=== PATIENT | male | born 1960 | race Asian ===

== ENCOUNTER 2020-12-05 14:28 | Inpatient (IN) | payer BC ==
[~2020-12-05] VITALS: Ht 175.3 cm; Wt 77.3 kg
[~2020-12-05 14:28] MED LIST: FERRO-TIME325 MG PO; MOTRIN 200200 MG/TAB PO; NIFEREX-150 501 CA1 PO; PRILOSEC 20MG20 MG PO; PROBENECID500 MG PO; PROTONIX 40MG T40 MG PO; ZYRTEC 10MG10 MG PO
[2020-12-05 17:01] LABS: BASO % 0.4 % (0.0-2.0); EOS % 0.9 % (0-4.0); GRAN # 2.9 (1.4-6.5); GRAN % 63.9 % (42.2-75.2); LYMPH # 1.2 (1.2-3.4); MEAN CELL VOLUME 94 fl (80.0-100.0); MEAN CORPUSCULAR HGB CONC 32 g/dl (33.0-37.0); MEAN PLATELET VOLUME 11.4 fl (7.4-10.4); MONO # 0.3 (0.1-0.6); MONO % 7.6 % (1.7-9.3); PLATELET COUNT 299 K/mm3 (130-400); RED BLOOD COUNT 2.45 M/mm3 (4.20-5.60); REDCELL DISTRIBUTION WIDTH-CV 13.5 % (11.5-14.5)
[2020-12-05 17:03] LABS: HEMATOCRIT 22.9 % (42.0-52.0); HEMOGLOBIN 7.4 g/dl (13.5-18.0); MEAN CORPUSCULAR HEMOGLOBIN 30 pg (27.0-31.0)
[2020-12-05 17:10] LABS: BILIRUBIN,TOTAL 0.4 mg/dL (0.0-1.0); CREATININE, serum 1.13 (0.66-1.25); POTASSIUM 3.6 mmol/L (3.4-5.0); TOTAL PROTEIN 6.9 gm/dL (6.4-8.2)
[2020-12-05 17:14] LABS: INR 1.1 (0.8-3.0); PROTHROMBIN TIME 11.9 SECONDS (9.7-12.8)
[2020-12-05] MEDS ORDERED: BENEMID500 MG PO (18:59)
[2020-12-05] MEDS ORDERED: ALLEGRA 180MG180 MG PO (18:59)
[2020-12-05 19:28] VITALS: BP 118/74; PULSE 69; TEMP 98.7
[2020-12-05 19:30] VITALS: BP 118/74; PULSE 62; TEMP 98.7
--- NOTE | 2020-12-05 22:34 | NUR ---
Patient transferred to medical floor room 307 via wheelchair from ER at 1930 pm. Patient pleasant, A/O x4. Patient denies any pain or discomfort. Denies SOB, headache, dizziness, N/V, or diarrhea. Abdomen soft and non-distended. Patient ambulates to the bathroom with steady gait. Oriented patient to the room. NS running at 150 ml/hr via left AC. All scheduled meds given per OCT. VS stable. Informed patient regarding NPO from midnight for Endoscopy procedure tomorrow. Patient verbalized understanding. Call light within reach. Patient denies any needs at this time.
[2020-12-06] VITALS (9 sets, daily range): BP systolic 12–112; BP diastolic 61–86; PULSE 54–66; TEMP 97–98.4
--- NOTE | 2020-12-06 06:28 | NUR ---
Patient slept well throughout the night. No c/o abdominal pain or dark stools noted. VS stable. No acute distress noted. Consent for EGD signed. Call light within reach.
--- NOTE | 2020-12-06 06:45 | NUR ---
PT IS BEING TAKEN TO HIS EGD AT THIS TIME.
[2020-12-06 07:16] LABS: MEAN CELL VOLUME 92 fl (80.0-100.0); MEAN CORPUSCULAR HGB CONC 32 g/dl (33.0-37.0); MEAN PLATELET VOLUME 11.7 fl (7.4-10.4); PLATELET COUNT 271 K/mm3 (130-400); RED BLOOD COUNT 2.37 M/mm3 (4.20-5.60); REDCELL DISTRIBUTION WIDTH-CV 13.5 % (11.5-14.5)
[2020-12-06 07:19] LABS: HEMATOCRIT 21.9 % (42.0-52.0); HEMOGLOBIN 7.1 g/dl (13.5-18.0); MEAN CORPUSCULAR HEMOGLOBIN 30 pg (27.0-31.0)
[2020-12-06 07:27] LABS: CALCIUM 8.5 mg/dL (8.4-10.2); CREATININE, serum 1.07 (0.66-1.25); POTASSIUM 3.8 mmol/L (3.4-5.0)
--- NOTE | 2020-12-06 09:23 | NUR ---
HENRIQUE met with the patient and his , Juan (ph#[phone]), to discuss discharge plan. The patient lives in [place] with his . He reports independence with ADLs and has crutches. The patient's PCP is Dr. Carmelina Solis and he receives his medications from [facility] [place]. He reports no difficulties obtaining his meds. The patient does not have a DPOA-HC, but he was interested obtaining a form. HENRIQUE provided. The patient plans to return home with his upon discharge. No additional needs at this time.
--- NOTE | 2020-12-06 09:46 | NUR ---
PT HAS RETURNED FROM THE EGD. STABLE AT THIS TIME. PT HAS BEEN TOLD HE CAN EAT, AND DRINK AT THIS TIME. PT WILL RECEIVE 1 UNIT OF PRBCs TODAY. WILL RECHECK HGB TOMORROW MORNING, AND THEN POSSIBLE D/C WHEN HGB STABLIZED. NO OTHER CONCERNS, CALL LIGHT WITHIN REACH, PT STILL REMAINS ON POST PROCEDURE VITALS, BUT IS STABLE. WILL CONTINUE TO MONITOR.
--- NOTE | 2020-12-06 14:03 | NUR ---
PT BLOOD TRANSFUSION IS COMPLETED. PT TOLERATED VERY WELL WITHOUT CONCERN. WILL RECHECK H&H AFTER 1HR. NO FURTHER CONCERNS AT THIS TIME.
[2020-12-06 15:24] LABS: HEMATOCRIT 22.6 % (42.0-52.0); HEMOGLOBIN 7.3 g/dl (13.5-18.0)
--- NOTE | 2020-12-06 19:36 | NUR ---
PT HAD AN UNEVENTFUL DAY. TOLERATED BLOOD TRANSFUSION WELL, SHOULD D/C TOMORROW PENDING STABLE H&H.
[2020-12-07 03:24] VITALS: BP 104/70; PULSE 66; TEMP 97.6
--- NOTE | 2020-12-07 06:06 | NUR ---
NO NEW ISSUES NOTED OR REPORTED BY PATIENT THROUGHOUT THE NIGHT. RESTED QUIETLY IN BED.
--- NOTE | 2020-12-07 06:53 | NUR ---
PT RESTING IN BED AT THIS TIME. NO CONCERNS, PT IS STABLE, AND DENIES ANY PAIN. REPORT RCVD FROM JAVY ROSALES
[2020-12-07 07:55] LABS: BASO % 0.2 % (0.0-2.0); EOS # 0.1 (0.0-0.7); GRAN # 2.6 (1.4-6.5); HEMATOCRIT 23.4 % (42.0-52.0); HEMOGLOBIN 7.6 g/dl (13.5-18.0); LYMPH # 1.5 (1.2-3.4); LYMPH % 32.5 % (20.0-51.0); MEAN CELL VOLUME 93 fl (80.0-100.0); MEAN CORPUSCULAR HEMOGLOBIN 30 pg (27.0-31.0); MEAN CORPUSCULAR HGB CONC 33 g/dl (33.0-37.0); MEAN PLATELET VOLUME 11.7 fl (7.4-10.4); MONO # 0.4 (0.1-0.6); MONO % 7.9 % (1.7-9.3); PLATELET COUNT 235 K/mm3 (130-400); RED BLOOD COUNT 2.52 M/mm3 (4.20-5.60); REDCELL DISTRIBUTION WIDTH-CV 13.4 % (11.5-14.5)
[2020-12-07 08:20] VITALS: BP 114/77; PULSE 56; TEMP 98
[2020-12-07] MEDS ORDERED: PROTONIX 40MG T40 MG PO (08:46)
--- NOTE | 2020-12-07 09:45 | NUR ---
PT DISCHARGE PAPERWORK COMPLETED, PT DOES NOT HAVE ANY QUESTIONS OR CONCERNS. DISCHARGE COMPLETED. NO FURTHER CONCERNS.
== END 2020-12-07 09:55 | disposition home or self-care (01) | DRG 378 ==
LOC: COL.ER 14:28 → MEDICAL 17:46
PROVIDERS: Internal Medicine Gastroenterology; Nurse Practitioner Family; Physician Assistant; ADMIT Internal Medicine
PROC: 0DB68ZX Excision of Stomach, Via Natural or Artificial Opening Endoscopic, Diagnostic (ICD-10-PCS; principal; 2020-12-06 06:45)
DX: K26.4 Chronic or unspecified duodenal ulcer with hemorrhage (principal); D62 Acute posthemorrhagic anemia; T39.395A Adverse effect of other nonsteroidal anti-inflammatory drugs [NSAID], initial encounter; M10.9 Gout, unspecified; G47.33 Obstructive sleep apnea (adult) (pediatric); K21.9 Gastro-esophageal reflux disease without esophagitis; R51.9 Headache, unspecified; Z88.8 Allergy status to other drugs, medicaments and biological substances; Z90.49 Acquired absence of other specified parts of digestive tract; Z87.891 Personal history of nicotine dependence
CPT/HCPCS: 99222-AI; 99232-AI; 99239; C9113; J2704; J7030; P9016